=== PATIENT | male | born 1965 | race African-American/Black ===

== ENCOUNTER 2020-07-11 08:31 | Inpatient (IN) | payer MEDICARE, OTHER ==
[~2020-07-11] VITALS: Ht 172.7 cm; Wt 67.2 kg
--- NOTE | ~2020-07-11 | EEG ---
[facility] [place] [address] ELECTROENCEPHALOGRAM Name: JAMAR ROLAND Room #: 216-P [facility] IN M.R.#: [id number] Admission: 07/11/20 Attend Phys: Bebo Chopra MD Discharge: Date of : 61 Report #: [id number] THIS REPORT FOR: //name// DATE OF SERVICE: 07/11/2020 This patient is being evaluated for the possibility of seizure. EEG was done by placing the electrode by standard 10-20 system of electrode placement. Both referential and sequential montages were used for recording. This patient's EEG demonstrates background activity of about 8 Hz and 30 microvolt. The patient went to sleep that is associated with bilateral slowing and vertex sharp waves. Photic stimulation is unremarkable. Throughout the record, no active epileptiform activity was noticed. IMPRESSION: This patient's EEG does not demonstrate any active epileptiform activity. It might be mentioned that EEG can be normal in patient with seizure disorder. Thank you very much for this referral. By: [id number] Jm Hallman MD /nt
--- NOTE | ~2020-07-11 | HC ---
[facility] [place] [address] CONSULTATION Name: JAMAR ROLAND Room #: 216-P [facility] IN M.R.#: [id number] Admission: 07/11/20 Attend Phys: Bebo Chopra MD Discharge: Date of : 61 Report #: [id number] THIS REPORT FOR: cc: FAM - Family physician unknown FAM - Family physician unknown Jm Hallman MD ~ DATE OF SERVICE: 07/11/2020 HISTORY OF PRESENT ILLNESS: This is a 54-year-old male patient who was evaluated by me for seizure. I had earlier talked to the Emergency Room physician and he told me that the patient had 3 seizures and he was told that the patient is on Depakote. It is not clear when was the last time he took his Depakote, so 1000 mg of Keppra was given to control the seizure and seizure has been controlled. I came back today and tried to examine him and taken history. He tells me that he has already given the history to somebody and he is not repeating that. He became very angry and used virtually every choice word imaginable for long time. I talked to the nurse. Nurse says that he has some history. The history is that this patient has seizures. He told me that he has it for 4 years, is not sure what kind of frequency of the seizure he has. He told the nurse that he is on 1000 mg of Keppra. The only thing he told me that he has a bipolar disorder, but he does not have it anymore. When I asked him was he ever on Depakote, he got even more angry and said that he has never heard about it. He apparently go to either [place] or research because of these seizures. REVIEW OF SYSTEMS: Impossible after the patient got angry and multiple attempts to calm him down were unsuccessful. He refused to give family history and social history, but record indicated polysubstance abuse and his urine drug screen today shows PCP, amphetamine, cocaine and marijuana. He refused to let me even listen to his heart. The only thing I can tell, he has a speech and he moves both sides. His blood pressure is 111/58, respirations 16, pulse is 68. LABORATORY DATA: Indicate a white count of 13.2. Lactic acid is high at 10.7. IMPRESSION: Almost impossible to form in this patient because of the patient's aggressive attitude at this moment and his refusal to give history or examination. I am not sure what to do with him, but he is already on Keppra. He can continue on Keppra, but we can give him the same dose of 1000 mg if that is the dose he was on, but he will not confirm that for me. The biggest thing is he needs to stop using all those drugs, which is going to be almost impossible because he does not even want to listen to that. He needs to take seizure precautions and he cannot drive. His lactic acid can be repeated. It was noticed that on his EKG, he has atrial fibrillation and a paced rhythm. [facility] [address] [place] [address] CONSULTATION Name: JAMAR ROLAND Room #: 216-P ADM IN Kaci.RLashanda#: [id number] Admission: 07/11/20 Attend Phys: Bebo Chopra MD Discharge: Date of : 61 Report #: [id number] If he does have atrial fibrillation, that question need to be addressed by Cardiology. I do not think much can be done in this patient except telling him to stop taking drugs and putting him on the same dose of Keppra he was on because he was so aggressive and ready to become even violent that I could not establish any doctor-patient relationship with him. I will talk to the hospitalist in the morning. Thank you very much for this referral and if you have any question, please feel free to contact me. By: [id number] Jm Hallman MD /nt
[2020-07-11 08:32] VITALS: BP 126/47
[2020-07-11 08:53] LABS: BASOPHILS 0.5 % (0.0-2.0); EOSINOPHILS 0.8 % (0.0-3.0); HEMATOCRIT 33.7 % (42.0-52.0); HEMOGLOBIN 10.3 gm/dL (14.0-18.0); LYMPHOCYTES 7.5 % (24.0-44.0); MCHC 30.5 g/dL (28.0-37.0); MCV 88.2 fL (80.0-100.0); MONOCYTES 7.8 % (1.0-8.0); PLATELET COUNT 223 thou/uL (150-400); POLYS 83.4 % (36.0-66.0); RBC 3.82 mil/uL (4.50-6.00); RDW 16.5 % (10.5-14.5); WBC 13.2 thou/uL (4.0-11.0)
[2020-07-11 09:02] LABS: ANION GAP 17 mmol/L (7-16); BUN 14 mg/dL (7-18); CALCIUM 8.7 mg/dL (8.5-10.1); CHLORIDE 102 mmol/L (98-107); CO2 20 mmol/L (21-32); CREATININE 1.4 mg/dL (0.7-1.3); GLUCOSE 125 mg/dL (74-106); POTASSIUM 4.3 mmol/L (3.5-5.1); SODIUM 139 mmol/L (136-145)
[2020-07-11 09:10] LABS: ALBUMIN 3.3 g/dL (3.4-5.0); LIPASE 170 U/L (73-393); SALICYLATE < 2.8 mg/dL (2.8-20.0); SGOT 25 U/L (15-37); SGPT 33 U/L (16-63); TOTAL BILIRUBIN 0.3 mg/dL (0.2-1.0); TOTAL PROTEIN 7.6 g/dL (6.4-8.2)
[2020-07-11 09:56] LABS: AMP/METHAMP POSITIVE (Negative); BARBITURATES Negative (Negative); BENZODIAZEPINES POSITIVE (Negative); COCAINE POSITIVE (Negative); METHADONE Negative (Negative); OPIATES Negative (Negative); PCP Negative (Negative)
[2020-07-11 13:11] VITALS: BP 92/68
[2020-07-11 14:07] VITALS: BP 111/58
[2020-07-11 14:30] VITALS: BP 132/72
--- NOTE | 2020-07-11 22:31 | NUR ---
At 1944 and 1999 pt was refusing all meds and refused to have VS taken. Pt stated repeatedly that "This is not my hospital and I will not let you give me drugs and experiment on me. I go to [facility] or [facility]. I don't know why they brought me here." Seam Sewer and Essie De Leon NP notified of pt's refusal of care. Seam Sewer spoke with pt around 2029. Pt very adamant that he will not allow us to treat him and that he wants to go to [facility]. Pt became very aggitated and threatened to "take out" the acute care certified nursing assistant standing next to him. Pt also began to use foul language and call staff foul names. Essie De Leon NP came to assess pt between 2129 and 2199. Pt very aggitated and angry at first, but then began to calm down slightly. At 2229 pt agreed to take one dose of Ativan and Keppra IV.
--- NOTE | 2020-07-12 01:01 | NUR ---
Pt refusing to wear heart monitor now. Told nurse "to get the f--- away. I don't need that sh--".
--- NOTE | 2020-07-12 05:38 | NUR ---
Pt has slept intermittently through night, but still refuses to wear heart monitor or let staff take VS or unwrap his IV tubing from his clothing. Attempts to provide nursing care causes pt to become angry and aggitated, uses foul language and tells staff to "get the hell out."
--- NOTE | 2020-07-12 06:54 | EKG ---
[place] [address] [facility] [place] [address] ELECTROCARDIOGRAM REPORT Name: JAMAR ROLAND Room #: 216-P ADM IN M.R.#: [id number] Admission: 07/11/20 Attend Phys: Bebo Chopra MD Discharge: Date of : 61 Report #: [id number] [facility] ED Test Date: 2020-07-11 Test Time: 08:56:32 Pat Name: JAMAR ROLAND Department: Room: 216 Gender: M [employer] Station Attendant: cu : 1965 Requested By: Austin Rainey Order Number: [id number] MD: Raul Armstrong Measurements Intervals [place] Rate: 60 P: PA: QRS: 198 QRSD: 150 T: 111 QT: 502 QTc: 502 Interpretive Statements Afib/flut and V-paced complexes No further analysis attempted due to paced rhythm Baseline wander in lead(s) V2 No previous ECG available for comparison Electronically Signed On 07-12-2020 6:54:16 [employer] by Raul Armstrong [email or web address] <ELECTRONICALLY SIGNED> By: Raul Armstrong MD, [facility] 07/12/20 [id number] Raul Armstrong MD, FAC /EPI
[2020-07-12 09:04] VITALS: BP 138/76
--- NOTE | 2020-07-12 10:50 | NUR ---
ORDERS FOR EVAL AND TREAT. PER NURSING, Pt IS UP AD VARSHA. SPOKE WITH Pt WHO DENIES ANY ISSUES WITH HIS STRENGTH, BALANCE OR MOBILITY. STATES HE IS GETTING UP FINE AND DECLINES A FORMAL P.T. EVAL
[2020-07-12 11:04] VITALS: BP 138/76
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
[2020-07-12 11:45] VITALS: BP 131/73
[2020-07-12] MEDS ORDERED: ELIQUIS5 MG PO (13:07)
[2020-07-12] MEDS ORDERED: ACETAMINOPHEN325 M1 PO (13:07)
[2020-07-12] MEDS ORDERED: KEPPRA XR500 MG PO (13:07)
[2020-07-12] MEDS ORDERED: ADULT ASPIRIN R81 MG PO (13:07)
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
[2020-07-12 14:00] VITALS: BP 131/73
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
--- NOTE | 2020-07-12 14:38 | NUR ---
PT DISCHARGED VIA CAB WITH MONEY FROM [employer] FOR MEDICATION COPAY. PT EDUCATED ON COMPLIANCE AND STAYING AWAY FROM ETOH, METH, COCAIN AND HOW THAT WITH NOT TAKING MEDICATIONS INCREASE RISK FOR SEIZURES. PT VERBALIZED UNDERSTANDING AND HAS NO QUESTIONS OR CONCERNS AT THIS TIME.
== END 2020-07-12 14:30 | disposition home or self-care (01) | DRG 100 ==
LOC: ER 08:31 → EROBS 11:10 → 2N 11:10
PROVIDERS: Emergency Medicine; Psychiatry & Neurology Neuromuscular Medicine; ADMIT Internal Medicine; ATTEND Internal Medicine
DX: G40.401 Other generalized epilepsy and epileptic syndromes, not intractable, with status epilepticus (principal); G93.41 Metabolic encephalopathy; N17.9 Acute kidney failure, unspecified; E87.2 Acidosis; I42.9 Cardiomyopathy, unspecified; J45.909 Unspecified asthma, uncomplicated; F39 Unspecified mood [affective] disorder; D63.8 Anemia in other chronic diseases classified elsewhere; I48.0 Paroxysmal atrial fibrillation; F19.129 Other psychoactive substance abuse with intoxication, unspecified; D72.829 Elevated white blood cell count, unspecified; Z95.0 Presence of cardiac pacemaker; Z91.19 Patient's noncompliance with other medical treatment and regimen; Z88.8 Allergy status to other drugs, medicaments and biological substances; Z79.82 Long term (current) use of aspirin; Z79.899 Other long term (current) drug therapy
CPT/HCPCS: 10081